=== PATIENT | female | born 1965 | race Caucasian/White ===

== ENCOUNTER 2017-07-07 08:07 | Day surgery (SDC) | payer BC ==
[2017-06-30 10:27] VITALS: BP 132/72
[~2017-07-07] VITALS: Ht 165.1 cm; Wt 161.0 kg
[~2017-07-07 08:07] MED LIST: ALBU6.7H PO; ATEN-104 PO; DULO60CA55 PO; FLUT12HF IH; LISI-170 PO; LORA0.5T PO; METF500T4 PO; OMEP-110 PO; VALA500T PO
[2017-07-07] MEDS ORDERED: LACTATED RINGERS 1,000 ML IV SCH (09:04)
[2017-07-07 09:09] VITALS: BP 132/72
[2017-07-07] MEDS ORDERED: LIDOCAINE 1%, 2ML ONE (09:16)
[2017-07-07] MEDS ORDERED: LIDOCAINE 1%, 2ML SQ PRN (09:30)
[2017-07-07] MEDS ORDERED: HYDR-3241 PO (09:31)
[2017-07-07] MEDS ORDERED: FENTANYL PF 100 MCG/2ML ONE (10:25)
[2017-07-07] MEDS ORDERED: MIDAZOLAM 1 MG/ML, 2ML ONE (10:25)
[2017-07-07] MEDS ORDERED: ONDANSETRON 2MG/ML, 2ML IVPush PRN (22:30)
[2017-07-07] MEDS ORDERED: HYDROmorphone 1 MG/ML, 1ML IV PRN (22:30)
[2017-07-07] MEDS ORDERED: METOPROLOL 1 MG/ML, 5ML IV PRN (22:30)
[2017-07-07] MEDS ORDERED: EPHEDRINE 50 MG/ML, 1ML IVPush PRN (22:30)
[2017-07-07] MEDS ORDERED: hydrALAzine 20 MG/ML, 1ML IV PRN (22:30)
[2017-07-07] MEDS ORDERED: ALBUTEROL/IPRATROPIUM 2.5MG/0.5MG, 3 ML NPPB PRN (22:30)
[2017-07-07] MEDS ORDERED: FENTANYL PF 100 MCG/2ML IV PRN (22:30)
[2017-07-07] MEDS ORDERED: ACETAMINOPHEN 325 MG TABLET PO PRN (22:30)
[2017-07-07] MEDS ORDERED: LABETALOL 5MG/ML, 20ML IV PRN (22:30)
== END 2017-07-07 12:15 ==
LOC: OUT 08:07
PROVIDERS: ATTEND Internal Medicine Gastroenterology
DX: Z12.11 Encounter for screening for malignant neoplasm of colon (principal); D12.0 Benign neoplasm of cecum; K21.9 Gastro-esophageal reflux disease without esophagitis; D64.9 Anemia, unspecified; F41.9 Anxiety disorder, unspecified; J45.909 Unspecified asthma, uncomplicated; I10 Essential (primary) hypertension; E66.9 Obesity, unspecified; Z90.710 Acquired absence of both cervix and uterus; Z98.890 Other specified postprocedural states; Z88.8 Allergy status to other drugs, medicaments and biological substances; Z72.89 Other problems related to lifestyle
CPT/HCPCS: 45385; 82962; 88305; J2250; J3010; J7120